=== PATIENT | male | born 1950 | race Caucasian/White ===

== ENCOUNTER 2017-08-23 10:36 | Emergency (ER) | payer MEDICARE ==
[2017-08-23 11:10] VITALS: BP 115/71
--- NOTE | 2017-08-23 12:28 | UC ---
Respiratory Complaint HPI - HPI Summary HPI Summary: Congestion and myalgias for about 5 days. He wonders if he had a fever at first. Cough is non productive. He denies prior lung disease. - History of Current Complaint Chief Complaint: UCRespiratory Stated Complaint: HEAD/CHEST CONGESTION Time Seen by Provider: 08/23/17 11:54 Hx Obtained From: Patient Onset/Duration: Gradual Onset, Lasting Days Severity Initially: Moderate Severity Currently: Moderate Character: Cough: Nonproductive Aggravating Factors: Deep Breaths, Recumbent Position Alleviating Factors: Nothing Associated Signs And Symptoms: Positive: Chills, URI, Nasal Congestion, Hoarseness. Negative: Wheezing, Hemoptysis, Calf Pain, Calf Swelling - Allergies/Home Medications Allergies/Adverse Reactions: Allergies Allergy/AdvReac Type Severity Reaction Status Date / Time No Known Allergies Allergy Verified 08/23/17 11:10 Home Medications: Home Medications Acetaminophen [Acetaminophen Extra Stren] 500 mg PO Q8HR PRN 08/23/17 [History Confirmed 08/23/17] [id number]-[id number] [Nyquil Severe Cold/Flu 5-6.25-10-325 mg/15Ml] 1 liq PO ONCE PRN 08/23/17 [History Confirmed 08/23/17] PMH/Surg Hx/FS Hx/Imm Hx Previously Healthy: No - No prior lung disease. Non smoker. - Surgical History Surgical History: None - Family History Known Family History: Negative: Diabetes Family History: neg for HTN or CAD - Social History Alcohol Use: Occasionally Substance Use Type: None Smoking Status (MU): Never Smoked Tobacco Review of Systems ENT: Sinus Congestion Respiratory: Cough All Other Systems Reviewed And Are Negative: Yes Physical Exam Triage Information Reviewed: Yes Appearance: Well-Appearing, No Pain Distress, Well-Nourished Vital Signs: Initial Vital Signs Temp 99.2 F 08/23/17 11:07 Pulse 71 08/23/17 11:07 Resp 20 08/23/17 11:07 BP 115/71 08/23/17 11:07 Pulse Ox 100 08/23/17 11:07 Vital Signs Reviewed: Yes Eyes: Positive: Conjunctiva Clear ENT: Positive: Normal ENT inspection, Pharynx normal, Nasal congestion, Nasal drainage, TMs normal, TM bulging, TM dull, TM red, Hoarse voice, Uvula midline. Negative: Pharyngeal erythema, Tonsillar swelling, Tonsillar exudate, Trismus , Muffled voice Neck: Positive: Supple, Nontender, No Lymphadenopathy Respiratory: Positive: Lungs clear, Normal breath sounds, No respiratory distress, No accessory muscle use. Negative: Respiratory distress, Decreased breath sounds, Accessory muscle use, Crackles, Rhonchi, Stridor, Wheezing Cardiovascular: Positive: No Murmur, Pulses Normal, Brisk Capillary Refill Abdomen Description: Positive: No Organomegaly, Soft. Negative: Distended, Guarding Musculoskeletal: Positive: ROM Intact, No Edema Neurological: Positive: Alert, Muscle Tone Normal. Negative: Fatigued Psychological: Positive: Age Appropriate Behavior Skin: Negative: rashes UC Diagnostic Evaluation - Laboratory O2 Sat by Pulse Oximetry: 100 Respiratory Course/Dx - Course Course Of Treatment: Low risk for influenza complications. Continued symptoms and increased age. We will treat with tamiflu. he agrees to return for any new or worsening symptoms. - Differential Dx/Diagnosis Provider Diagnoses: influenza. Discharge - Discharge Plan Condition: Good Disposition: HOME Prescriptions: Oseltamivir CAP* [Tamiflu CAP*] 75 mg PO BID #[id number] cap Patient Education Materials: Influenza (ED) Referrals: JUSTIN Bernstein [Primary Care Provider] -
== END 2017-08-23 12:29 | disposition home or self-care (01) ==
LOC: UCCORT 10:36
DX: J11.1 Influenza due to unidentified influenza virus with other respiratory manifestations (principal)
CPT/HCPCS: 87502; 99212; G0463